=== PATIENT | male | born 1965 | race Two or more races ===

== ENCOUNTER 2025-03-21 16:09 | Emergency (ER) | payer OTHER, SELFPAY ==
[2025-03-21 16:26] VITALS: BP 161/90; PULSE 68; RESP 18; TEMP 36.6; O2SAT 95; BMI 29.0
--- NOTE | 2025-03-21 16:27 | XR_ITS ---
Examination: Left elbow 3 views Technique: Elbow AP, oblique, lateral 3 views Exam date and time: March 21, 2025, 1638 hours INDICATIONS: Patient fell today with injury to the elbow, elbow pain. FINDINGS: No acute fracture No dislocation IMPRESSION: No acute fracture Repeat the study short-term if pain persists
--- NOTE | 2025-03-21 16:28 | PD.EDRME ---
Rapid Medical Screening Exam COUNTS INCLUDE 234 BEDS AT THE [facility] Arrival date/time: 03/21/25 16:09 59-year-old male with no known medical history presents to the emergency room with a chief complaint of tenderness and swelling to his left elbow after a ground-level fall that occurred 2 hours ago I have greeted and performed a focused initial assessment of this patient. A comprehensive ED assessment and evaluation of the patient, analysis of all test results, and completion of the medical decision making process will be conducted by additional ED providers. Chief Complaint: Extremity Injury, Upper Time Seen by Provider: 03/21/25 16:16 Vital signs: Vital Signs Temperature 98 F 03/21/25 16:26 Pulse Rate 68 03/21/25 16:26 Respiratory Rate 18 03/21/25 16:26 Blood Pressure 161/90 H 03/21/25 16:26 Pulse Oximetry (%) 95 03/21/25 16:26 Oxygen Delivery Method Room Air 03/21/25 16:26 Vital signs reviewed by provider: Yes Exam: Tenderness, swelling, limited range of motion to the left elbow Clinical Impression: Left elbow sprain/left elbow dislocation/left elbow fracture
--- NOTE | 2025-03-21 17:07 | PD.EDUPEX ---
Upper Extremity Injury RME/HPI General Chief Complaint: Extremity Injury, Upper Stated Complaint: FALL. LEFT ELBOW PAIN Time Seen by Provider: 03/21/25 16:16 Arrival date/time: 03/21/25 16:09 59-year-old male with no known medical history presents to the emergency room with a chief complaint of tenderness and swelling to his left elbow after a ground-level fall that occurred 2 hours ago Mode of arrival: ambulatory Limitations: no limitations RME / HPI RME / HPI narrative: 03/21/25 16:09 59-year-old male with no known medical history presents to the emergency room with a chief complaint of tenderness and swelling to his left elbow after a ground-level fall that occurred 2 hours ago I have greeted and performed a focused initial assessment of this patient. A comprehensive ED assessment and evaluation of the patient, analysis of all test results, and completion of the medical decision making process will be conducted by additional ED providers. Exam: Tenderness, swelling, limited range of motion to the left elbow Impression: Left elbow sprain/left elbow dislocation/left elbow fracture Related Data Previous Rx's ?Medication ?Instructions ?Recorded ibuprofen 800 mg tablet 800 mg PO Q8H #30 tabs 03/21/25 Allergies Allergy/AdvReac Type Severity Reaction Status Date / Time No Known Allergies Allergy Verified 03/21/25 16:11 Review of Systems Review of Systems Systems Reviewed: All systems reviewed, normal except as documented Constitutional Constitutional: Reports system reviewed and no additional complaints, except as documented, Denies fatigue, Denies fever(s), Denies headache(s) and Denies weakness Eyes Eyes: Reports system reviewed and no additional complaints, except as documented, Denies blurry vision and Denies change in vision ENT Ears, Nose, Mouth, and Throat: Reports system reviewed and no additional complaints, except as documented, Denies otalgia, Denies headache(s), Denies nasal congestion, Denies throat swelling and Denies vertigo Cardiovascular Cardiovascular: Reports system reviewed and no additional complaints, except as documented, Denies chest pain, Denies dyspnea and Denies dyspnea on exertion Respiratory Respiratory: Reports system reviewed and no additional complaints, except as documented, Denies chest congestion, Denies cough, Denies dyspnea, Denies dyspnea on exertion and Denies wheezing Gastrointestinal Gastrointestinal: Reports system reviewed and no additional complaints, except as documented, Denies abdominal pain, Denies cramping, Denies nausea and Denies vomiting Genitourinary Genitourinary: Reports system reviewed and no additional complaints, except as documented, Denies dysuria and Denies hematuria Musculoskeletal Musculoskeletal: Reports system reviewed and no additional complaints, except as documented, Reports arthralgias, Denies back pain and Reports limited range of motion Integumentary/Breasts Skin/Breast: Reports system reviewed and no additional complaints, except as documented and Denies wounds Neurologic Neurologic: Reports system reviewed and no additional complaints, except as documented, Denies confusion, Denies headache(s), Denies lack of coordination, Denies vertigo and Denies weakness Psychiatric Psychiatric: Reports system reviewed and no additional complaints, except as documented, Denies anxiety, Denies confusion, Denies depression, Denies paranoia, Denies suicidal ideation and Denies tactile hallucinations Endocrine Endocrine: Reports system reviewed and no additional complaints, except as documented and Denies fatigue Hematologic/Lymphatic Hematologic/Lymphatic: Reports system reviewed and no additional complaints, except as documented and Denies lymphadenopathy Allergic/Immunologic Allergic/Immunologic: Reports system reviewed and no additional complaints, except as documented, Denies throat swelling, Denies urticaria and Denies wheezing Past Medical History Social History SMOKING STATUS: Never smoker ED Exam General Limitations: Present no limitations General appearance: Present alert and in no apparent distress Head Head exam: Present atraumatic Eye Eye exam: Present normal appearance, PERRL and EOMI ENT ENT exam: Present normal exam, normal oropharynx and mucous membranes moist Neck Neck exam: Present normal inspection, full ROM and trachea midline Chest Chest inspection: Present normal inspection and symmetric chest wall rise Respiratory Respiratory exam: Present normal lung sounds bilaterally Cardiovascular Cardiovascular exam: Present regular rate, normal rhythm and normal heart sounds Abdominal Exam Abdominal exam: Present soft and normal bowel sounds Extremities Exam Extremities exam: Present normal inspection and full ROM Back Exam Back exam: Present normal inspection and full ROM Neurological Exam Neurological exam: Present alert, oriented X3 and CN II-XII intact Psychiatric Psychiatric exam: Present normal affect and normal mood Skin Skin exam: Present warm, dry, intact and normal color Course Quality Measures none Orders Category Date Time Status sling [Splint / Immobilizer] STAT Care 03/21/25 17:05 Active XR elbow comp LT min 3V Stat Exams 03/21/25 16:27 Completed Vital Signs Vital signs: Vital Signs Temperature 98 F 03/21/25 16:26 Pulse Rate 68 11/18/25 16:26 Respiratory Rate 18 03/21/25 16:26 Blood Pressure 161/90 H 03/21/25 16:26 Pulse Oximetry (%) 95 03/21/25 16:26 Oxygen Delivery Method Room Air 03/21/25 16:26 Extremity Injury MDM Narrative MDM Narrative:: 59-year-old male with no known medical history presents to the emergency room with a chief complaint of tenderness and swelling to his left elbow after a ground-level fall that occurred 2 hours ago Patient is hemodynamically stable and in no apparent distress Physical examination shows tenderness and swelling to the patient's left elbow. X-rays of the elbow were completed and were negative for any acute fracture or dislocation. An Arnjit wrap and a sling were given to the patient for comfort Patient was discharged and educated to follow-up with primary care provider in the next 24 to 48 hours and return to the emergency room for any evidence of worsening signs or symptoms Patient data External records reviewed:: [facility] previous records Clinical information provided by:: patient Social determinants that could affect healthcare access:: none Patient has the following chronic illnesses:: No chronic illness How is presenting disease/condition affected by chronic disease/condition?: no chronic disease Evaluation data The following diagnostics were reviewed and interpreted by me:: lab results and radiology exam(s) Lab and/or radiology exams considered but not ordered:: Labs and radiology exams considered and ordered Interpretation Summary: X-ray of the left elbow-no acute fracture or dislocation Medications / Prescriptions Medications or Prescriptions considered but not ordered:: No medication given Medication administrations:: No medication given Consultations Consultation(s) initiated? (list below): No Diagnosis Upper Extremity Injury Differential Diagnosis: other (Left elbow fracture/elbow dislocation/elbow sprain) Most likely diagnosis given after review of the tests above:: Elbow sprain Admission Indicated Admission indicated?: not indicated Admission Request Was there a request for admission?: No Disposition Plan Disposition Plan: Discharge Discharge Attestation Discharge Attestation: The patient and all family members were given an opportunity to ask questions and understood the discharge instructions. Discharge instructions specifically effects, indications for sooner follow up or return to the emergency department, and the expected course of current diagnosis. Patient condition: Stable Discharge Plan Plan Patient Disposition: HOME (Self Care) Discharge Disposition comment: Stable Prescriptions/Referrals Prescriptions/Med Rec: New ibuprofen 800 mg tablet 800 mg PO Q8H Qty: 30 0RF Problem List Clinical Impression: Elbow sprain Patient/Caregiver Discharge Instructions Education Materials: ED RANJIT Wrap, ED Sprain, Elbow Additional Instructions: Please follow-up with your primary care provider in the next 24 to 48 hours X-rays of your elbow were completed and were negative for any acute fracture or dislocation. An Ranjit wrap and a sling were given to you for comfort For any evidence of worsening signs or symptoms return to the emergency room immediately Print Language: Nepali Stand Alone Forms: [employer] Award Info., Work/School Release, Patient Portal Info Letter
--- NOTE | 2025-03-21 17:23 | XR_ITS ---
Examination: CT left elbow, without contrast. 2-D sagittal reconstructions. 2-D coronal reconstructions. 3-D reconstructions. Date and time of exam: March 21, 2025, 1853 hours INDICATIONS: Patient fell today with injury to the elbow, elbow pain CTDI: vol (mGy): 8.33 DLP: (mGycm): 204 Technique: Multiple 1.25 mm axial sections of the left elbow have been obtained. 2-D sagittal and coronal reconstructions have been obtained. 3-D reconstructions have been obtained. Low dose protocols were performed. One or more of the following dose reduction techniques were used; automated exposure control, adjustment of the mA and/or KV according to patient size, use of iterative reconstruction technique. Findings: Acute comminuted fractures of the coronoid process of the ulna, sagittal images 45 through 54 with multiple bone fragments Also fractures off the medial margin of the olecranon, small fractures, axial images 56 through 65 Distal humerus intact Radial head intact IMPRESSION: Multiple acute comminuted fractures off the coronoid process of the ulna Smaller fractures off the medial margin of the olecranon No elbow dislocation
[2025-03-21] MEDS: IBUPROFEN TAB 400 MG TABLET 800 MG PO (17:36)
--- NOTE | 2025-03-21 17:36 | PD.EDADULT ---
ED General RME/HPI General Chief complaint: Extremity Injury, Upper Stated complaint: FALL. LEFT ELBOW PAIN Time Seen by Provider: 03/21/25 16:16 Arrival date/time: 03/21/25 16:09 CC: Left elbow pain HPI patient slipped and fell backwards with a hyperextended left arm extended behind him to break his fall. Patient experienced immediate pain into the elbow, denies any numbness or tingling in the fingertips. Currently complaining of 6 out of 10 elbow pain with a swollen elbow that is tender to palpation. Patient denies any other symptoms from the fall. Including loss of consciousness altered level of conscious nausea vomiting or diarrhea. No blurred vision seeing spots or syncope. Mode of arrival: ambulatory Limitations: no limitations RME / HPI RME / HPI narrative: 03/21/25 16:09 59-year-old male with no known medical history presents to the emergency room with a chief complaint of tenderness and swelling to his left elbow after a ground-level fall that occurred 2 hours ago I have greeted and performed a focused initial assessment of this patient. A comprehensive ED assessment and evaluation of the patient, analysis of all test results, and completion of the medical decision making process will be conducted by additional ED providers. Exam: Tenderness, swelling, limited range of motion to the left elbow Impression: Left elbow sprain/left elbow dislocation/left elbow fracture Related Data Previous Rx's ?Medication ?Instructions ?Recorded ibuprofen 800 mg tablet 800 mg PO Q8H #30 tabs 03/21/25 Allergies Allergy/AdvReac Type Severity Reaction Status Date / Time No Known Allergies Allergy Verified 03/21/25 16:11 Review of Systems Review of Systems Narrative Review of Systems: GEN: No fever, no chills, no weight loss EYES: No discharge, no visual changes, no pain HEENT: No ear pain, no congestion, no sore throat PULM: No shortness of breath, no cough, no congestion CV: No chest pain, no dyspnea on exertion, no palpitations GI: No nausea, no vomiting, no diarrhea, no pain, no constipation : No frequency, no urgency, no dysuria MUSC/SKEL: + joint pain, no back pain SKIN: No rash PSYCH: No hallucinations, no depression HEME/LYMPH: No easy bleeding or bruising tendencies NEURO: No weakness, no headache Past Medical History Social History SMOKING STATUS: Never smoker ED Exam Narrative Physical exam: [General: In mild discomfort but not in any acute distress Head normocephalic HEENT: Within acceptable limits Neck is supple nontender Chest equal chest rise nontender to palpation Respiratory: Clear to auscultation no wheezes crackles or rubs CV: Rate rhythm is regular no murmurs rubs or clicks Abdomen is soft nontender no masses positive bowel sounds all 4 quadrants Back: No CVA tenderness no spinous process tenderness from cervical spine thoracic and lumbar spine Skin: Intact no petechiae rash induration ulceration or crepitus Extremities: Left upper extremity, elbow: Decreased range of motion of flexion secondary to acute pain in the antecubital fossa. No pain with palpation of the olecranon process, there is edema both medial and lateral, no fluctuance to it no erythema or streaking, not warm to touch. There is no grinding sensation with partial passive range of motion. The patient is guarding any more than 15 degrees from full extension. Otherwise patient is moving all other extremities against resistance cap refill less than 2 seconds neurosensory intact Neuro: Awake alert oriented x3 Glascow coma 15 no focal deficits] General Limitations: Present no limitations General appearance: Present alert and in no apparent distress Course Course Course Narrative: Patient is exquisitely tender with attempt to flex, less so with extension, at this time I am elect to CT the elbow make sure there are no hairline fractures that are not appreciated on plain film. Patient is in agreement with this plan Quality Measures none Orders Category Date Time Status Splint / Immobilizer STAT Care 03/21/25 20:46 Completed sling [Splint / Immobilizer] STAT Care 03/21/25 17:[address] elbow LT wo con Stat Exams 03/21/25 17:23 Completed XR elbow comp LT min 3V Stat Exams 03/21/25 16:27 Completed Ibuprofen Tab [Motrin Tab] Med 03/21/25 17:26 Discontinued 800 mg PO X1 ONE Vital Signs Vital signs: Vital Signs Temperature 98 F 03/21/25 16:26 Pulse Rate 68 03/21/25 16:26 Respiratory Rate 18 03/21/25 16:26 Blood Pressure 161/90 H 03/21/25 16:26 Pulse Oximetry (%) 95 03/21/25 16:26 Oxygen Delivery Method Room Air 03/21/25 16:26 Discharge Plan Plan Patient Disposition: HOME (Self Care) Discharge Disposition comment: Stable Prescriptions/Referrals Prescriptions/Med Rec: New ibuprofen 800 mg tablet 800 mg PO Q8H Qty: 30 0RF Problem List Clinical Impression: Elbow fracture, left Patient/Caregiver Discharge Instructions Education Materials: ED JOSE Wrap, ED Elbow Fracture Additional Instructions: Please follow-up with your primary care provider in the next 24 to 48 hours Keep the splint on do not get it wet or take it off, if either of these happen go immediately to the emergency room for new splint application. Ibuprofen or Tylenol for pain. Follow-up with the geoscience specialist in the next 5 to 7 days. For any evidence of worsening signs or symptoms return to the emergency room immediately Print Language: Palestinian Stand Alone Forms: [employer] Award Info., Work/School Release, Patient Portal Info Letter DEONTE/RONAK Supervising Physician RACHNA Supervising Physician: James Saenz ENP [facility] Clinical Information Provided by: patient Medical Records reviewed [facility] Meds/Rx considered, not ordered None Labs/Rad/Tests considered, not ordered None Chronic Illness/Social Conditions which may negatively complicate care or outcome(s)-explain: None or not applicable Labs Labs: none Imaging Imaging interpretation: interpreted by id Imaging Interpretation(s): X-ray of the elbow is negative for any acute fracture. Medication Administration(s) Medication Administration History Discontinued Medications Ibuprofen (Ibuprofen Tab 400 Mg Tablet) 800 mg PO X1 ONE Stop: 03/21/25 17:27 Last Admin: 03/21/25 17:36 Dose: 800 mg Documented By:
--- NOTE | 2025-03-21 18:46 | PC.NURSE ---
CALLED CT WHEN THEY WERE GOING TO TAKE PT. THEY SAID HE WILL BE THE NEXT PT.
== END 2025-03-21 21:37 | disposition home or self-care (01) ==
LOC: SERX 17:45
PROVIDERS: Emergency Provider Emergency Medicine
DX: S42.442A Displaced fracture (avulsion) of medial epicondyle of left humerus, initial encounter for closed fracture (principal); S53.402A Unspecified sprain of left elbow, initial encounter; S42.462A Displaced fracture of medial condyle of left humerus, initial encounter for closed fracture; W01.0XXA Fall on same level from slipping, tripping and stumbling without subsequent striking against object, initial encounter
CPT/HCPCS: 73080; 73200; 99283; A9270